=== PATIENT | female | born 1960 | race African-American/Black ===

== ENCOUNTER 2018-08-06 19:22 | Emergency (ER) | payer OTHER ==
[2015-01-04 03:45] VITALS: BP 183/105
[~2018-08-06] VITALS: Ht 167.6 cm; Wt 73.0 kg
[2018-08-06] MEDS ORDERED: IOHEXOL 300 MG/ML 75 ML VIAL. IV ONE ×2 (19:45→22:30)
[2018-08-06] MEDS ORDERED: IV NORMAL SALINE 1,000ML 1,000 ML IV ONE (19:45)
[2018-08-06] MEDS ORDERED: KETOROLAC 30 MG/ML VIAL. IV ONE (19:45)
--- NOTE | 2018-08-06 20:28 | RAD ---
PQRS Compliance statement: One or more of the following individualized dose reduction techniques were utilized for this examination: 1. Automated exposure control. 2. Adjustment of the mA and/or kV according to patient size. 3. Use of iterative reconstruction technique. Indication:Omni 300 75cc: Severe right sided abdomen pain x 3 days TECHNIQUE: CT abdomen and pelvis with IV contrast with multiplanar reformats. COMPARISON: 12/04/2011 FINDINGS: Heart is normal in size. No pericardial or pleural effusion. Clear lung bases. Liver, spleen, gallbladder, pancreas, adrenals and left kidney are within normal limits. No nephrolithiasis. There is a partially exophytic complex solid and cystic lesion in the right kidney measuring 3.9 x 4.4 x 3.7 cm abutting medial margin of the segment 7 of the liver with enhancing solid components. No enlarged retroperitoneal or pelvic adenopathy. No free pelvic fluid or ascites. No bowel obstruction. Anteverted uterus. Urinary bladder demonstrates circumferential wall thickening without focal lesion. No pneumoperitoneum. S-shaped scoliosis of the thoracolumbar spine. No suspicious bony lesion. IMPRESSION: 1. Right renal complex cystic and solid lesion as described above (Bosniak 4) highly concerning for RCC. Electronically signed by: David Sam DO (08/06/2018 8:24 PM) [facility]
[2018-08-06 20:34] LABS: BASO % 0 % (0-3); EOS % 0 % (0-3); HEMATOCRIT 37.8 % (36.0-47.0); HEMOGLOBIN 12.6 g/dL (12.0-15.5); LYMPH # 0.7 x10^3/uL (1.0-4.8); LYMPH % 9 % (24-48); MEAN CORPUSCULAR HEMOGLOBIN 29 pg (25-35); MEAN CORPUSCULAR HGB CONC 33 g/dL (31-37); MEAN CORPUSCULAR VOLUME 86 fL (79-100); MONO # 0.5 x10^3/uL (0.0-1.1); MONO % 6 % (0-9); NEUT # 6.5 x10^3uL (1.8-7.7); NEUT % 84 % (31-73); PLATELET COUNT 204 x10^3/uL (140-400); RED BLOOD COUNT 4.42 x10^6/uL (3.50-5.40); RED CELL DISTRIBUTION WIDTH 14.4 % (11.5-14.5); WHITE BLOOD COUNT 7.7 x10^3/uL (4.0-11.0)
[2018-08-06 20:50] LABS: ALBUMIN 4.1 g/dL (3.4-5.0); ALBUMIN/GLOBULIN RATIO 1.1 (1.0-1.7); CALCIUM 9.4 mg/dL (8.5-10.1); CREATININE 0.6 mg/dL (0.6-1.0); GFR 125.1; POTASSIUM 3.8 mmol/L (3.5-5.1); TOTAL BILIRUBIN 1.7 mg/dL (0.2-1.0); TOTAL PROTEIN 7.9 g/dL (6.4-8.2)
[2018-08-06 20:57] LABS: BILIRUBIN,URINE NEG (NEG); CLARITY,URINE CLEAR; COLOR,URINE YELLOW; GLUCOSE,URINE NEG (NEG)
[2018-08-06 20:58] LABS: BACTERIA,URINE 0 /HPF (0-FEW); NITRITE,URINE NEG (NEG); RBC,URINE RARE /HPF (0-2); SQUAMOUS EPITHELIAL CELL,UR OCC /LPF; UROBILINOGEN,URINE 0.2 mg/dL (0.2 mg/dL); WBC,URINE RARE /HPF (0-4)
--- NOTE | 2018-08-06 21:33 | RAD ---
CHEST PA LATERAL CLINICAL INDICATION: Chest pain COMPARISON: None FINDINGS: Heart is normal in size. Lungs are clear. No pneumothorax or pleural effusion. Moderate dextroscoliosis scoliosis is seen of the lower thoracic spine. IMPRESSION: No acute pulmonary process. Electronically signed by: David Sam DO (08/06/2018 9:29 PM) [facility]
--- NOTE | 2018-08-06 22:43 | RAD ---
PQRS Compliance statement: One or more of the following individualized dose reduction techniques were utilized for this examination: 1. Automated exposure control. 2. Adjustment of the mA and/or kV according to patient size. 3. Use of iterative reconstruction technique. Indication:Chest pain, palpitations, elevated d-dimer TECHNIQUE: CT angiogram of the chest with IV contrast with multiplanar MIP reformats. COMPARISON:None FINDINGS: Diagnostic quality PE study. There are no central, segmental or subsegmental filling defects in the pulmonary arteries. Heart is normal in size. No pericardial or pleural effusion. No axillary or hilar adenopathy. Multiple mediastinal lymph nodes are seen not pathologically enlarged per CT criteria. Central airways are patent. Mild subsegmental atelectasis in the lung bases. Otherwise, lungs are clear. Moderate S-shaped scoliosis of the thoracic spine noted. No suspicious bony lesion. IMPRESSION: 1. No PE. No pneumonia. Electronically signed by: David Sam DO (08/06/2018 10:40 PM) [facility]
[2018-08-06] MEDS ORDERED: HYDR-3165 PO (22:57)
--- NOTE | 2018-08-06 22:59 | PHYS DOC ---
Adult General Chief Complaint Chief Complaint Right upper quadrant pain and right flank pain HPI HPI 58 years old female presented to the emergency department with right upper quadrant pain in the right flank pain for the past 3 days described as a sharp constant pain worse if she takes a deep breath not related to position no hematuria no urgency no frequency no nausea no vomiting Review of Systems Review of Systems Constitutional: Denies fever or chills [] Eyes: Denies change in visual acuity, redness, or eye pain [] HENT: Denies nasal congestion or sore throat [] Respiratory: Denies cough or shortness of breath [] Cardiovascular: No additional information not addressed in HPI [] GI: Denies nausea, vomiting, bloody stools or diarrhea [] : Denies dysuria or hematuria [] Musculoskeletal: Denies back pain or joint pain [] Integument: Denies rash or skin lesions [] Neurologic: Denies headache, focal weakness or sensory changes [] Endocrine: Denies polyuria or polydipsia [] All other systems were reviewed and found to be within normal limits, except as documented in this note. Current Medications Current Medications Current Medications Medications (Trade) Dose Ordered Sig/Nia Start Time Stop Time Status Last Admin Dose Admin Iohexol (Omnipaque 300 Mg/ml) 75 ml 1X ONCE 08/06/18 22:30 08/06/18 22:31 DC 08/06/18 22:19 75 ML Ketorolac Tromethamine (Toradol 30mg Vial) 30 mg 1X ONCE 08/06/18 19:45 08/06/18 19:46 DC 08/06/18 20:01 30 MG Sodium Chloride 1,000 ml @ 1,000 mls/hr 1X ONCE 08/06/18 19:45 08/06/18 20:44 DC 08/06/18 20:00 1,000 MLS/HR Allergies Allergies Allergies Coded Allergies Type Severity Reaction Last Updated Verified No Known Drug Allergies 01/04/15 No Physical Exam Physical Exam Constitutional: Well developed, well nourished, no acute distress, non-toxic appearance. [] HENT: Normocephalic, atraumatic, bilateral external ears normal, oropharynx moist, no oral exudates, nose normal. [] Eyes: PERRLA, EOMI, conjunctiva normal, no discharge. [] Neck: Normal range of motion, no tenderness, supple, no stridor. [] Cardiovascular:Heart rate regular rhythm, no murmur [] Lungs & Thorax: Bilateral breath sounds clear to auscultation [] Abdomen: Bowel sounds normal, soft, tenderness right upper quadrant, no masses, no pulsatile masses. [] Skin: Warm, dry, no erythema, no rash. [] Back: No tenderness, no CVA tenderness. [] Extremities: No tenderness, no cyanosis, no clubbing, ROM intact, no edema. [] Neurologic: Alert and oriented X 3, normal motor function, normal sensory function, no focal deficits noted. [] Psychologic: Affect normal, judgement normal, mood normal. [] Current Patient Data Vital Signs Vital Signs Date Time Temp Pulse Resp B/P (MAP) Pulse Ox O2 Delivery O2 Flow Rate FiO2 08/06/18 19:39 98.9 75 18 99 Room Air Lab Results Laboratory Tests Test 08/06/18 19:05 08/06/18 20:01 D-Dimer ([place]) 0.83 mg/L (0.00-0.50) H White Blood Count 7.7 x10^3/uL (4.0-11.0) Red Blood Count 4.42 x10^6/uL (3.50-5.40) Hemoglobin 12.6 g/dL (12.0-15.5) Hematocrit 37.8 % (36.0-47.0) Mean Corpuscular Volume 86 fL (79-100) Mean Corpuscular Hemoglobin 29 pg (25-35) Mean Corpuscular Hemoglobin Concent 33 g/dL (31-37) Red Cell Distribution Width 14.4 % (11.5-14.5) Platelet Count 204 x10^3/uL (140-400) Neutrophils (%) (Auto) 84 % (31-73) H Lymphocytes (%) (Auto) 9 % (24-48) L Monocytes (%) (Auto) 6 % (0-9) Eosinophils (%) (Auto) 0 % (0-3) Basophils (%) (Auto) 0 % (0-3) Neutrophils # (Auto) 6.5 x10^3uL (1.8-7.7) Lymphocytes # (Auto) 0.7 x10^3/uL (1.0-4.8) L Monocytes # (Auto) 0.5 x10^3/uL (0.0-1.1) Eosinophils # (Auto) 0.0 x10^3/uL (0.0-0.7) Basophils # (Auto) 0.0 x10^3/uL (0.0-0.2) Urine Collection Type Unknown Urine Color Yellow Urine Clarity Clear Urine pH 5.5 Urine Specific [place] 1.010 Urine Protein Neg (NEG-TRACE) Urine Glucose (UA) Neg mg/dL (NEG) Urine Ketones (Stick) >=160 mg/dL (NEG) Urine Blood Neg (NEG) Urine Nitrite Neg (NEG) Urine Bilirubin Neg (NEG) Urine Urobilinogen Dipstick 0.2 mg/dL (0.2 mg/dL) Urine Leukocyte Esterase Neg (NEG) Urine RBC Rare /HPF (0-2) Urine WBC Rare /HPF (0-4) Urine Squamous Epithelial Cells Occ /LPF Urine Bacteria 0 /HPF (0-FEW) Urine Mucus Slight /LPF Sodium Level 135 mmol/L (136-145) L Potassium Level 3.8 mmol/L (3.5-5.1) Chloride Level 98 mmol/L (98-107) Carbon Dioxide Level 24 mmol/L (21-32) Anion Gap 13 (6-14) Blood Urea Nitrogen 14 mg/dL (7-20) Creatinine 0.6 mg/dL (0.6-1.0) Estimated GFR (Cockcroft-Gault) 125.1 BUN/Creatinine Ratio 23 (6-20) H Glucose Level 85 mg/dL (70-99) Calcium Level 9.4 mg/dL (8.5-10.1) Total Bilirubin 1.7 mg/dL (0.2-1.0) H Aspartate Amino Transferase (AST) 22 U/L (15-37) Alanine Aminotransferase (ALT) 22 U/L (14-59) Alkaline Phosphatase 104 U/L (46-116) Total Protein 7.9 g/dL (6.4-8.2) Albumin 4.1 g/dL (3.4-5.0) Albumin/Globulin Ratio 1.1 (1.0-1.7) Lipase 40 U/L (73-393) L EKG EKG [] Radiology/Procedures Radiology/Procedures [] Impressions: Right renal complex cystic and solid lesion as described above (Bosniak 4) highly concerning for RCC. Course & Med Decision Making Course & Med Decision Making Pertinent Labs and Imaging studies reviewed. (See chart for details) [] Final Impression Final Impression Patient to follow-up with urology[] Problems: (1) Renal mass Dragon Disclaimer Dragon Disclaimer This electronic medical record was generated, in whole or in part, using a voice recognition dictation system. ROBERTO PORRAS MD Aug 06, 2018 22:59
== END 2018-08-06 23:20 | disposition home or self-care (01) ==
LOC: ER 19:22
DX: N28.89 Other specified disorders of kidney and ureter (principal); R07.9 Chest pain, unspecified
CPT/HCPCS: 36415; 71046; 71275; 74177; 80053; 81001; 83690; 85025; 85379; 96374; 99284; J1885; Q9967; J7030